=== PATIENT | male | born 1995 | race Caucasian/White ===

== ENCOUNTER 2017-12-12 14:24 | Inpatient (IN) | payer BC, OTHER ==
[~2017-12-12] VITALS: Ht 170.2 cm; Wt 67.1 kg
[2017-12-13] MEDS ORDERED: LORAZEPAM 2 MG/1 ML VIAL IM PRN (20:30)
[2017-12-13] MEDS ORDERED: LOPERAMIDE HCL 2 MG CAPSULE PO PRN ×2 (20:30)
[2017-12-13] MEDS ORDERED: CLONIDINE HCL 0.1 MG TABLET PO PRN (20:30)
[2017-12-13] MEDS ORDERED: ACETAMINOPHEN 325 MG TABLET PO PRN (20:30)
[2017-12-13] MEDS ORDERED: MAGNESIUM HYDROXIDE 30 ML LIQUID UDC PO PRN (20:30)
[2017-12-13] MEDS ORDERED: ONDANSETRON 4 MG/2 ML VIAL IM PRN (20:30)
[2017-12-13] MEDS ORDERED: IBUPROFEN 400 MG TABLET PO PRN (20:30)
[2017-12-13] MEDS ORDERED: LORAZEPAM 1 MG TABLET PO PRN ×2 (20:30)
[2017-12-13] MEDS ORDERED: MAG HYDROX/AL HYDROX/SIMETH 30 ML LIQUID UDC PO PRN (20:30)
[2017-12-13] MEDS ORDERED: diphenhydrAMINE 50 MG CAPSULE PO PRN (20:30)
[2017-12-13] MEDS ORDERED: THIAMINE HCL 200 MG/2 ML VIAL IM ONE (20:30)
[2017-12-13] MEDS ORDERED: MIRALAX 17 GM POWD.PACK PO PRN (20:30)
[2017-12-13] MEDS ORDERED: ONDANSETRON ODT 4 MG TAB.RAPDIS SL PRN (20:30)
[2017-12-13] MEDS ORDERED: DICYCLOMINE HCL 20 MG TABLET PO PRN (20:30)
--- NOTE | 2017-12-13 20:30 | NUR ---
INTAKE ASSESSMENT BP:145/68, HR:94, RR:16, SpO2:96%, T:98.1 Pt is stable and able to be admitted on the unit. Unit protocols regarding medications and vital signs every 4 hours were explained. Pt verbalized understanding. Will continue admission upon arrival on the unit.
[2017-12-13 20:40] VITALS: BP 145/68
[2017-12-13 20:57] LABS: BASOPHILS % (AUTO) 0.4 % (0.0-2.0); EOSINOPHILS # (AUTO) 0.1 K/uL (0.0-0.7); EOSINOPHILS % (AUTO) 1.2 % (0.0-7.0); HEMATOCRIT 48.2 % (36.7-47.1); HEMOGLOBIN 16.7 g/dL (12.5-16.3); LYMPHOCYTES # (AUTO) 0.8 K/uL (20.0-40.0); LYMPHOCYTES % (AUTO) 10.7 % (20.5-51.5); MEAN CORPUSCULAR HEMOGLOBIN 31.1 uug (23.8-33.4); MEAN CORPUSCULAR HGB CONC 35 g/dL (32.5-36.3); MEAN CORPUSCULAR VOLUME 89.5 fL (73.0-96.2); MONOCYTES # (AUTO) 0.7 K/uL (2.0-10.0); MONOCYTES % (AUTO) 9.8 % (0.0-11.0); NEUTROPHILS # (AUTO) 5.8 K/uL (1.8-8.9); NEUTROPHILS % (AUTO) 77.9 % (38.5-71.5); PLATELET COUNT (AUTO) 179 K/uL (152-348); RED BLOOD CELL COUNT(AUTO) 5.39 MIL/uL (4.06-5.63); WHITE BLOOD COUNT (AUTO) 7.4 K/uL (3.6-10.2)
[2017-12-13 21:19] LABS: ALANINE AMINOTRANSFERASE 117 U/L (16-63); ALKALINE PHOSPHATASE 66 U/L (50-136); AMYLASE 33 U/L (25-115); ASPARTATE AMINOTRANSFERASE 72 U/L (15-37); BILIRUBIN,TOTAL 0.8 mg/dL (0.2-1.0); CARBON DIOXIDE 29 mmol/L (21-32); CHLORIDE 98 mmol/L (98-107); CREATININE 1.3 mg/dL (0.6-1.3); GLUCOSE 100 mg/dL (74-106); MAGNESIUM 2.3 mg/dL (1.8-2.4); POTASSIUM 3.6 mmol/L (3.5-5.1); TOTAL PROTEIN, SERUM 8.7 g/dL (6.4-8.2); UREA NITROGEN, BLOOD 6 mg/dL (7-18)
[2017-12-13 21:20] LABS: ETHANOL < 3 MG/DL (0-0)
--- NOTE | 2017-12-13 21:30 | NUR ---
ADMISSION NOTE Pt arrived ambulatory from [facility] to the third floor accompanied by a HOSPICE NURSE PRACTITIONER at 2049. Pt is a 22 year old male admitted on 12/13/17 for ETOH withdrawal. Pt is full code with NKA. He reports a PMHx of depression. He reports having a history of suicidal ideation with a plan two years ago. He currently denies any SI/HI. He brought home medications of Ondansetron 4 mg, Clonidine 0.1 mg, Lorazepam 1 mg and Phenobarbital 30 mg. Medications have been reconciled. He reports he moved here from [place] with his girlfriend one month ago. Pt reports he visited an ER in [place] yesterday d/t ETOH withdrawal. He reports he was there for a few hours and then was sent home. This is his first time in treatment. He reports his last sobriety was for 7 days, 2 months ago. He reports he is here because, " I want to get better." He describes his current use as: 1. ETOH (vodka) 1 pint-750 mL daily for 2 years. Last dose: 750mL of vodka on 12/12/17 2. Marijuana. intermittent use for 2 years. He describes his withdrawal symptoms as " anxiety, restlessness, tremors, sweating, insomnia, nausea, vomiting, lightheadedness and dizziness" Upon assessment, pt is alert and oriented x4, speech is clear,soft, and audible. Pt noted to be anxious, agitated, restless, worried, flushed, irritable, and complains of sensitivity to light and sound. Heart rate regular. Denies chest pain or SOB. PERRLA, breathing is even and unlabored, lung sounds clear. Abdomen is soft and non-distended. Bowel sounds present in all quadrants, last BM 12/12/17. Pt reports that BM is regular. Pt's skin is warm, dry and intact. He was seen and assessed by Dr. Garcia. Pt oriented to room and unit. Safety measures in place. Will continue to monitor.
--- NOTE | 2017-12-13 22:04 | NUR ---
PRN ATIVAN Pt complains of anxiety, restlessness, lightheadedness, irritability, flushed face and clammy skin. CIWA:14. PRN Ativan 2 mg administered as ordered. Safety measures in place. Will monitor effectiveness.
[2017-12-13] MEDS ORDERED: LORA-259 PO (22:11)
[2017-12-13] MEDS ORDERED: ONDA4TAB5 GT (22:11)
[2017-12-13] MEDS ORDERED: PHEN30TA40 PO (22:11)
[2017-12-13] MEDS ORDERED: CLON0.1T PO (22:11)
[2017-12-13 22:19] LABS: *AMPHETAMINE, URINE NEGATIVE (NEGATIVE); *BARBITURATE, URINE NEGATIVE (NEGATIVE); *CANNABINOID, URINE NEGATIVE (NEGATIVE); *COCCAINE, URINE NEGATIVE (NEGATIVE); *OPIATE, URINE NEGATIVE (NEGATIVE); *PHENCYCLIDINE SCREEN,URINE NEGATIVE (NEGATIVE)
--- NOTE | 2017-12-13 23:04 | NUR ---
PRN REASSESSMENT Medication is effective. Pt lying in bed with eyes closed noted to be asleep. No facial grimacing noted. Breathing is even and unlabored, safety measures in place. Will monitor.
[2017-12-14] VITALS: BP 129/65
--- NOTE | 2017-12-14 04:00 | NUR ---
VITALS/CIWA 0400 vitals refused by pt. CIWA deferred d/t pt lying in bed with eyes closed noted to be asleep. Breathing is even and unlabored, safety measures in place. Will monitor.
--- NOTE | 2017-12-14 07:07 | NUR ---
END OF SHIFT Pt is a 22 year old male admitted on 12/13/17 for ETOH withdrawal. He remains alert and oriented x4. He was noted with flushed face, anxiety, restlessness, agitation and irritability during the shift. He is scheduled to start a 4 day Ativan taper today. He slept a total of 7 hrs, Intake: 500 mL, Void: x1, BM:0, CIWA:14 at 2130. Breathing is even and unlabored, safety measures in place. Endorsed to AM shift.
[2017-12-14 08:00] VITALS: BP 128/86
--- NOTE | 2017-12-14 08:08 | NUR ---
START OF SHIFT PT IS A 22 Y/O M ADMITTED ON 12/13/17 FOR MEDICALLY SUPERVISED ETOH WITHDRAWAL. PT IS PLACED ON A 4 DAY ATIVAN TAPER, STARTING TODAY. PT IS LAYING IN BED WITH EYES CLOSED AND APPEARS TO BE SLEEPING AT THE TIME. RESPIRATIONS EVEN AND UNLABORED. LAST CIWA 14 AND PT SLEPT FOR 7 HRS. PT HAS BEEN GIVEN AN ATIVAN SIDE RAILS UPX2, BED IN LOWEST POSITION. CALL LIGHT IS WITHIN REACH. SAFETY MEASURES IN PLACE. WILL CONTINUE TO MONITOR.
[2017-12-14] MEDS: LORAZEPAM 1 MG TABLET PO SCH ×3 (08:54→21:18)
[2017-12-14] MEDS: MULTIVITAMINS,THERAPEUTIC TABLET PO SCH (08:54)
[2017-12-14] MEDS: FOLIC ACID 1 MG TABLET PO SCH (08:54)
[2017-12-14] MEDS: THIAMINE HCL 100 MG TABLET PO SCH (08:54)
[2017-12-14] MEDS ORDERED: TUBERCULIN,PURIF.PROT.DERIV. 5 TU/0.1 ML TEST ID ONE (09:00)
--- NOTE | 2017-12-14 09:00 | NUR ---
PT REPORTS HAVING VISUAL/AUDITORY HALLUCINATIONS AND DISTURBANCES BUT NOT AT THIS TIME. PT STATES HE THOUGHT THERE WERE PEOPLE IN THE ROOM AND SEVERAL TIMES FEELING CONFUSION, PT STATES HE WAS NOT SURE IF HE WAS SLEEPING OR AWAKE. REASSURED PT OF W/D SYMPTOMS; EDUCATED PT WITH S/S TO REPORT. PT VERBALIZED UNDERSTANDING. Addendum: 12/14/17 at 1044 by GIL MARQUEZ RN PT IS A/OX4, RESPIRATIONS EVEN AND UNLABORED. PT HAS POOR EYE CONTACT, AND HAS A DISHEVELED APPEARANCE. PT PRESENTS ANXIETY, RESTLESSNESS, AGITATION, TREMORS ARE FELT, INTERMITTENT SLEEP, MILD HEADACHE. DENIES NAUSEA.
[2017-12-14 12:20] VITALS: BP 105/56
[2017-12-14 16:00] VITALS: BP 107/61
--- NOTE | 2017-12-14 19:26 | NUR ---
END OF SHIFT LAST CIWA 14. PT HAS BEEN ISOLATIVE IN ROOM DURING SHIFT. PT STATES HE IS FEELING WEAK AND NOT WELL ENOUGH TO ATTEND GROUPS OR ACTIVITIES. PT REPORTS ATIVAN TAPER IS EFFECTIVE FOR MAJORITY OF HIS S/S OF WITHDRAWAL. PT STATES HE HAS BEEN EXPERIENCING VISUAL HALLUCINATIONS, CONFUSION OF SITUATION, AND VIVID DREAMS AT AM/NIGHT. NO PRNS DURING SHIFT. FLUID INTAKE SAFETY MEASURES IN PLACE. WILL GIVE ENDORSEMENT TO LOCAL TELEPHONE OPERATOR NURSE.
--- NOTE | 2017-12-14 19:40 | NUR ---
Start of Shift Note Received a 22 y/o male px, admitted for medically supervised withdrawal from ETOH. Px is placed on 4 day Ativan taper started today 12/14/2017. Px is tolerating it. Last reported CIWA 14 by AM shift nurse. During the rounds at 1940, px is awake on bed in fowlers position, watching TV. Px appears depressed and disheveled. Px stated "my anxiety is about 2/10. I had stomach cramps this morning but no N/V but I don't need medicine for it. I'll be fine." Bed on lowest position, side rails up 2x, and call light within reach. We'll continue to monitor.
[2017-12-14 20:00] VITALS: BP 128/69
[2017-12-15] VITALS: BP 120/71
[2017-12-15 04:00] VITALS: BP 118/73
--- NOTE | 2017-12-15 04:00 | NUR ---
CIWA deferred CIWA deferred at 0000 and 0400 due to the px is asleep, to assess if the px is awake per doctor's order. We'll continue to monitor.
--- NOTE | 2017-12-15 07:10 | NUR ---
End of Shift Note During the shift, px slept most of the time. No PRN medications given. Pxs oral intake is 2 L, voided 3x, with No BM. Px slept for 9 hours. At 0630, px is asleep on bed in right side lying position. Last CIWA 10. Bed on lowest position, side rails up 2x, and call light within reach. We'll continue to monitor. Px endorsed to AM shift nurse.
--- NOTE | 2017-12-15 07:30 | NUR ---
Start of Shift Pt. is 22 y/o male admitted for the medically managed withdrawal from ETOH. Pt. was placed on a 4 day Ativan taper per MD order. Endorsed pt.s behavior as being withdrawn with a depressed affect. During previous the shift, pt slept most of the time. No PRN medications given during previous shift. Received pt. in room. Pt. laying in bed shirtless with a disheveled appearance and depressed affect. Pt. pleasant upon approach but states he feels depressed. Encouraged pt. to verbalize concerns and emotions and educated pt. on plan of care. Last CIWA 10. Bed on lowest position, side rails up 2x, and call light within reach. We'll continue to monitor. Will continue to monitor pt.s behavior for safety.
[2017-12-15 08:00] VITALS: BP 126/76
[2017-12-15] MEDS: LORAZEPAM 1 MG TABLET PO SCH ×3 (09:08→16:11)
[2017-12-15] MEDS: MULTIVITAMINS,THERAPEUTIC TABLET PO SCH (09:08)
[2017-12-15] MEDS: THIAMINE HCL 100 MG TABLET PO SCH (09:08)
[2017-12-15] MEDS: FOLIC ACID 1 MG TABLET PO SCH (09:08)
[2017-12-15] MEDS: buPROPion XL 150 MG TAB.SR.24H PO SCH (09:32)
[2017-12-15 12:07] LABS: HEPATITIS B SURFACE AG Negative (Negative)
[2017-12-15 12:20] VITALS: BP 123/57
[2017-12-15 16:46] VITALS: BP 132/82
--- NOTE | 2017-12-15 19:09 | NUR ---
End of Shift Pt. is 22 y/o male admitted for the medically managed withdrawal from ETOH. Pt. was placed on a 4 day Ativan taper per MD order. Pt. medication complaint throughout shift and adhered to unit policies and procedures. Pt.s behavior during shift was guarded, withdrawn with a depressed affect. Pt. remained in room throughout shift only stepping out to smoke and for needs. No PRN medications given during shift. Encouraged pt. to verbalize concerns and emotions and educated pt. on plan of care. Last CIWA 14 at 1600. Bed on lowest position, side rails up 2x, and call light within reach. We'll Endorse pt.s care onto incoming shift.
--- NOTE | 2017-12-15 19:40 | NUR ---
Start of Shift Note Received a 22 y/o male px, admitted for medically supervised withdrawal from ETOH. Px is placed on 4 day Ativan taper started 12/14/2017. Px is tolerating it. Last reported CIWA 14 by AM shift nurse. During the rounds at 1940, px is awake on bed in fowlers position, watching TV. Px appears depressed and disheveled. Few drinks noted on top of the bed side table. Px has good eye contact. Px stated "I don't have anxiety but I am a bit restless." No other complaints made. Bed on lowest position, side rails up 2x, and call light within reach. We'll continue to monitor.
[2017-12-15 20:00] VITALS: BP 126/84
[2017-12-15] MEDS ORDERED: LORAZEPAM 1 MG TABLET PO SCH (21:00)
[2017-12-16] VITALS: BP 124/78
[2017-12-16 04:00] VITALS: BP 113/74
--- NOTE | 2017-12-16 07:10 | NUR ---
End of Shift Note During the shift, no PRN medications given. Px's oral intake is 1 L, voided 2x, with 1x BM. Px slept for 7.5 hours. At 0630, px is asleep on bed in fowlers position. Last CIWA 9. Bed on lowest position, side rails up 2x, and call light within reach. We'll continue to monitor. Px endorsed to AM shift nurse.
--- NOTE | 2017-12-16 07:30 | NUR ---
Start of Shift Note Pt. is 22 y/o male admitted for the medically managed withdrawal from ETOH. Pt. was place on a 4 day Ativan taper. Pt. compliant with treatment plan, and medication regiment. Endorsed pt.'s behavior during previous shift as anxious, guarded but pleasant upon approach. Received pt. in room with eyes closed laying in bed. No S/S of S.O.B noted. Pt. arousable to touch and name. No PRN's given during previous shift. Last CIWA at 0400 was 9. Safety measures in place, will continue to monitor pt.'s behavior for safety.
[2017-12-16 08:00] VITALS: BP 121/58
[2017-12-16] MEDS: FOLIC ACID 1 MG TABLET PO SCH (08:36)
[2017-12-16] MEDS: MULTIVITAMINS,THERAPEUTIC TABLET PO SCH (08:36)
[2017-12-16] MEDS: buPROPion XL 150 MG TAB.SR.24H PO SCH (08:36)
[2017-12-16] MEDS: LORAZEPAM 1 MG TABLET PO SCH ×3 (08:36→20:42)
[2017-12-16] MEDS: THIAMINE HCL 100 MG TABLET PO SCH (08:36)
[2017-12-16 12:00] VITALS: BP 134/79
[2017-12-16 16:59] VITALS: BP 118/78
--- NOTE | 2017-12-16 19:15 | NUR ---
End of Shift Note Pt. is 22 y/o male admitted for the medically managed withdrawal from ETOH. Pt. was place on a 4 day Ativan taper. Pt. compliant with treatment plan, and medication regiment throughout shift. Upon approach pt. is pleasant but guarded with a depressed affect. Pt. education given regarding disease process, and pt. verbalize understanding. Pt. stated " I'm still thinking of drinking all the time but I want to go to recovery and get better." No PRN's given during AM shift. Last CIWA 12. Safety measures in place. Will endorse pt.'s care to oncoming shift.
--- NOTE | 2017-12-16 19:59 | NUR ---
START OF SHIFT NOTE Rcvd report from outgoing nurse, pt. is currently in group therapy session. Pt. is a 22 y/o male A/O to person, place, time, and purpose. Pt. was admitted for medically supervised withdrawal from ETOH. Pt. has a past medical h/o depression and suicide attempt (2 yrs ago). Pt. presents w/ anxious and depressed mood, flat affect, and body aches. Pt rcvd no PRN medications during previous shift. Pt. denies any S/I and H/I. Last CIWA 12 @ 1600. Call light is within reach. Pt. will continue to be monitored and needs met.
[2017-12-16 20:00] VITALS: BP 133/81
--- NOTE | 2017-12-17 00:01 | NUR ---
CIWA DEFERRED AND V/S REFUSED Pt. is in bed w/ his eyes closed. Pt.'s breathing is unlabored and even.
--- NOTE | 2017-12-17 04:10 | NUR ---
CIWA DEFERRED AND V/S REFUSED Pt. is in bed w/ his eyes closed. Pt.'s breathing is even and unlabored.
--- NOTE | 2017-12-17 07:10 | NUR ---
END OF SHIFT NOTE Endorsed pt. to oncoming nurse, pt. is currently in his room. Pt. is a 22 y/o male A/O to person, place, time, and purpose. Pt. was admitted for medically supervised withdrawal from ETOH. Pt. has a past medical h/o depression and suicide attempt (2 yrs ago). Pt. continues to present w/ anxious and depressed mood, flat affect, and body aches. Pt. states he had his last drink 48 hrs. before entering detox and wants to leave early. Educated pt. on treatment process. Pt. states understanding of process. Pt rcvd no PRN medications during the shift supervisor. Pt.s fluid intake was 1000 ml. Pt. voided 2 times and slept for 6 hrs. Last CIWA 12 @ 2000. Call light is within reach.
--- NOTE | 2017-12-17 07:15 | NUR ---
START OF SHIFT: PATIENT IS A 22 YR OLD MALE ADMITTED TO [facility] ON 12/13/17 FOR A MEDICALLY SUPERVISED WITHDRAWAL FROM ALCOHOL.HE HAS BEEN PLACED ON A 4 DAY ATIVAN TAPER AND THIS IS DAY 4. NO PRN MEDS WERE REQUIRED OR REQUESTED ON PM SHIFT, HE SLEPT FOR 5 HOURS AND LAST CIWA WAS 12 @ 8PM. HE IS ASLEEP IN BED AT THIS TIME, BREATHING EVEN AND UNLABORED, SIDE RAILS UP X2. CONT TO FOLLOW MD PLAN OF CARE.
[2017-12-17 08:00] VITALS: BP 101/50
[2017-12-17] MEDS: FOLIC ACID 1 MG TABLET PO SCH (08:46)
[2017-12-17] MEDS: THIAMINE HCL 100 MG TABLET PO SCH (08:46)
[2017-12-17] MEDS: MULTIVITAMINS,THERAPEUTIC TABLET PO SCH (08:46)
[2017-12-17] MEDS: buPROPion XL 150 MG TAB.SR.24H PO SCH (08:46)
[2017-12-17] MEDS ORDERED: LORAZEPAM 1 MG TABLET PO SCH (09:00)
[2017-12-17 12:00] VITALS: BP 134/81
[2017-12-17] MEDS ORDERED: ACAMPROSATE CALCIUM 333 MG TABLET.DR PO ONE (13:00)
[2017-12-17 16:00] VITALS: BP 142/86
[2017-12-17] MEDS ORDERED: ACAMPROSATE CALCIUM PO (17:46)
[2017-12-17] MEDS ORDERED: IBUP-1953 PO (17:46)
[2017-12-17] MEDS ORDERED: CLON0.1T14 PO (17:46)
[2017-12-17] MEDS ORDERED: BUPR-96 PO (17:46)
[2017-12-17] MEDS ORDERED: DIPH50CA37 PO (17:46)
--- NOTE | 2017-12-17 18:48 | NUR ---
END OF SHIFT: PATIENT IS A 22 YR OLD MALE ADMITTED TO [facility] ON 12/13/17 FOR A MEDICALLY SUPERVISED WITHDRAWAL FROM ALCOHOL. HE HAS COMPLETED A 4 DAY ATIVAN TAPER AND IS TO BE DISCHARGED TOMORROW TO " [facility]" . NO PRN MEDICATIONS WERE REQUIRED OR REQUESTED TODAY, HE HAS ATTENDED ALL GROUPS AND HAS INTERACTED WITH HIS PEERS. HE HAD A FLUID INTAKE OF 3400 ML, 6 VOIDS AND 1 BM. LAST CIWA 10 @ 1600. CONTINUE TO FOLLOW MD PLAN OF CARE AND OFFER SUPPORT NEEDED. ENDORSED TO WET PROCESS MILLER.
--- NOTE | 2017-12-17 19:59 | NUR ---
START OF SHIFT NOTE Rcvd report form outgoing nurse, pt. is in his room. Pt. is a 22 y/o male A/O to person, place, time, and purpose. Pt. was admitted for medically supervised withdrawal from ETOH. Pt. presents w/ anxiety, depressed and withdrawn mood, and flat affect. Pt. rcvd no PRN medications during day shift. Pt. was complaint w/ treatment program and attended group therapy sessions. Pt. denies S/I and H/I. Pt. to be discharged 12/18/17. Last CIWA 10 @ 1600. Call light is within reach. Pt. will continue to be monitored and needs met.
[2017-12-17 20:00] VITALS: BP 144/61
--- NOTE | 2017-12-18 | NUR ---
CIWA DEFERRED AND V/S REFUSED Pt. is in bed w/ his eyes closed. Pt.'s breathing is unlabored and even.
--- NOTE | 2017-12-18 07:23 | NUR ---
END OF SHIFT NOTE Endorsed pt. to oncoming nurse, pt. is in his room. Pt. is a 22 y/o male A/O to person, place, time, and purpose. Pt. was admitted for medically supervised withdrawal from ETOH. Pt. presented w/ anxiety, depressed and withdrawn mood, and flat affect. Pt. rcvd no PRN medications during the shift. Pt. was complaint w/ treatment program and attended group therapy sessions. Pt.s fluid intake was 1500 ml and he voided 3 times. Pt. slept for 6.5 hrs. Pt. to be discharged 12/18/17. Last WA 10 @ 1999. Call light is within reach.
--- NOTE | 2017-12-18 08:11 | NUR ---
Start of Shift Note Pt. is a 22 y/o male admitted for the medically managed withdrawal from ETOH. Pt. was placed on a 5 Ativan taper which he completed. Pt. is set to be discharged this morning to [facility]. Endorsed pt. was compliant with treatment plan and medication regiment. Endorsed pt. was isolative and withdrawn. Received pt. in room. Pt. laying on his side with eyes closed, no signs of SOB noted. Pt. arousable to touch and name. Educated pt. on Discharge plan, and pt. verbalized understanding. Pt. stated "I'm ready to go." Endorsed pt. slept 6.5 hours and last CIWA at 2200. Safety measures in place. Will continue to monitor pt.'s behavior for safety prior to discharge.
[2017-12-18 08:12] VITALS: BP 113/58
[2017-12-18] MEDS ORDERED: LORAZEPAM 1 MG TABLET PO SCH (09:00)
[2017-12-18] MEDS: THIAMINE HCL 100 MG TABLET PO SCH (09:15)
[2017-12-18] MEDS: MULTIVITAMINS,THERAPEUTIC TABLET PO SCH (09:15)
[2017-12-18] MEDS: FOLIC ACID 1 MG TABLET PO SCH (09:15)
[2017-12-18] MEDS: buPROPion XL 150 MG TAB.SR.24H PO SCH (09:15)
--- NOTE | 2017-12-18 09:50 | NUR ---
Discharge Note Pt. is a 22 y/o male admitted for the medically managed withdrawal from ETOH. Pt. was placed on a 5 Ativan taper which he completed. Pt. A/O X 4 with no acute distress noted. Pt. denies SI and HI. Pt. educated on D/C plan and verbalized understanding. Pt. belongings, D/C packet, and Rx placed in blue and black bag. Pt. discharge to [facility]. Pt. is set to be picked up by private transportation "[employer]". Pt. escorted of unit by staff at this time.
== END 2017-12-18 09:52 | disposition other institution (70) | DRG 895 ==
LOC: SRC 12-13 19:44
PROVIDERS: ADMIT Internal Medicine; ATTEND Internal Medicine
PROC: HZ2ZZZZ Detoxification Services for Substance Abuse Treatment (ICD-10-PCS; principal; 2017-12-13)
PROC: HZ31ZZZ Individual Counseling for Substance Abuse Treatment, Behavioral (ICD-10-PCS; 2017-12-16)
PROC: HZ41ZZZ Group Counseling for Substance Abuse Treatment, Behavioral (ICD-10-PCS; 2017-12-16)
DX: F10.232 Alcohol dependence with withdrawal with perceptual disturbance (principal); E87.1 Hypo-osmolality and hyponatremia; K70.10 Alcoholic hepatitis without ascites; E86.0 Dehydration; F12.90 Cannabis use, unspecified, uncomplicated; I15.9 Secondary hypertension, unspecified; Y90.0 Blood alcohol level of less than 20 mg/100 ml; Z83.3 Family history of diabetes mellitus; Z81.8 Family history of other mental and behavioral disorders; Z81.1 Family history of alcohol abuse and dependence; F41.9 Anxiety disorder, unspecified; F32.9 Major depressive disorder, single episode, unspecified
CPT/HCPCS: 36415; 70030-TC; 80307; 83735; 85025; 86580; 86592; 86705; 86803; 87340; 87806; A4663; G0480; J3411